=== PATIENT | female | born 1990 | race Two or more races ===

== ENCOUNTER 2018-09-16 09:12 | Emergency (ER) | payer MEDICAID ==
[~2018-09-16] VITALS: Ht 167.6 cm; Wt 93.0 kg
[2018-09-16] MEDS ORDERED: ALBUTEROL (0.083%) 2.5MG/3ML NEB HHN STA ×2 (09:53→11:43)
[2018-09-16] MEDS ORDERED: IPRATROPIUM BROMIDE (0.02%) 0.5MG/2.5ML NEB HHN STA (09:53)
[2018-09-16] MEDS ORDERED: METHYLPREDNISOLONE SOD SUCC 125 MG/2 ML VIAL IV STA (09:53)
[2018-09-16 10:31] LABS: BASOPHILS % 0.3 % (0.0-2.0); EOSINOPHILS % 1.4 % (0.0-5.0); HEMATOCRIT. 40.9 % (36.0-48.0); HEMOGLOBIN. 14.1 g/dL (12.0-16.0); LYMPHOCYTES % 19.8 % (20.0-50.0); MEAN CORPUSCULAR HEMOGLOBIN 31.8 pg (28.0-32.0); MEAN PLATELET VOLUME 12.1 fl (7.4-10.4); MONOCYTES % 8.8 % (2.0-8.0); NEUTROPHILS % 69.7 % (40.0-76.0); PLATELET 141 x1000/uL (130-400); RED BLOOD CELL COUNT 4.44 mill/uL (4.2-5.4)
[2018-09-16 10:44] LABS: CHLORIDE 106 mEq/L (98-107)
[2018-09-16 10:59] LABS: HCG SCREEN NEGATIVE
[2018-09-16] MEDS ORDERED: MAGNESIUM 2 G PREMIX 50 ML IV STA (11:43)
[2018-09-16 13:15] VITALS: BP 122/76
== END 2018-09-16 13:49 | disposition home or self-care (01) ==
LOC: ER 09:12 → CANBEDREQ 16:19
DX: J45.901 Unspecified asthma with (acute) exacerbation (principal); R00.0 Tachycardia, unspecified; R03.0 Elevated blood-pressure reading, without diagnosis of hypertension; F17.210 Nicotine dependence, cigarettes, uncomplicated; Z71.6 Tobacco abuse counseling; F12.90 Cannabis use, unspecified, uncomplicated; Z88.6 Allergy status to analgesic agent; Z88.8 Allergy status to other drugs, medicaments and biological substances
CPT/HCPCS: 36415; 71045; 80053; 84703; 85025; 93005; 94640; 94644; 96365; 96375; 99285; 99406; J2930; J3475; J7611